=== PATIENT | female | born 1990 | race Caucasian/White ===

== ENCOUNTER 2020-10-20 11:47 | Emergency (ER) | payer OTHER, BC, SELFPAY ==
[2020-10-20 12:10] VITALS: BP 144/86; PULSE 94; RESP 17; TEMP 36.8; O2SAT 99
[2020-10-20] MEDS: TETANUS,DIPHTHERIA,AC PERTUSSIS ADULT (0.5 ML) BOOSTRIX IM (12:29)
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
== END 2020-10-20 12:52 | disposition home or self-care (01) ==
PROVIDERS: Emergency Provider Nurse Practitioner
DX: S51.851A Open bite of right forearm, initial encounter (principal); Y04.1XXA Assault by human bite, initial encounter; Y99.0 Civilian activity done for income or pay; Z23 Encounter for immunization; F17.210 Nicotine dependence, cigarettes, uncomplicated
CPT/HCPCS: 90471; 90715; 99213; G0463